=== PATIENT | female | born 1970 | race Caucasian/White ===

== ENCOUNTER → 2017-05-13 | Outpatient (CLI) | payer OTHER ==
[~2017-05-13] MED LIST: EPP3/2 IM; LISI10TA PO; MULT-513 PO
--- NOTE | 2017-05-13 16:06 | MAMMOGRAPHY REPORT ---
BILATERAL DIGITAL SCREENING MAMMOGRAM TOMOSYNTHESIS WITH CAD: 05/13/2017 CLINICAL HISTORY: Routine screening. Patient has no complaints. TECHNIQUE: Breast tomosynthesis in addition to standard 2D mammography was performed. Current study was also evaluated with a Computer Aided Detection (CAD) system. COMPARISON: Comparison is made to exams dated: 04/30/2016 mammogram, 04/11/2015 mammogram, 03/15/2014 m ammogram, 03/28/2014 mammogram, 03/28/2014 ultrasound, and 04/11/2014 stereotactic biopsy - [facility]. BREAST COMPOSITION: There are scattered areas of fibroglandular density in both breasts. FINDINGS: There are stable post biopsy changes in the lower inner quadrant of the right breast. A f ew scattered and grouped stable microcalcifications bilaterally. No new suspicious mass, architectur al distortion or cluster of microcalcifications is seen. IMPRESSION: ACR BI-RADS CATEGORY 1: NEGATIVE There is no mammographic evidence of malignancy. A 1 year screening mammogram is recommended. The pa tient will receive written notification of the results. Approximately 10% of breast cancers are not detected with mammography. A negative mammographic report should not delay biopsy if a clinically suggestive mass is present. Jessi Cross M.D. ay/:05/13/2017 15:39:51 Senior Safety Support Manager: Loly SALOMON)(M), [facility] letter sent: Normal 1/2 BI-RADS Code: ACR BI-RADS Category 1: Negative
== END | disposition home or self-care (01) ==
LOC: C.MAMM 11:13
PROVIDERS: ATTEND Obstetrics & Gynecology
DX: Z12.31 Encounter for screening mammogram for malignant neoplasm of breast (principal)

== ENCOUNTER → 2017-07-22 | Outpatient (CLI) | payer OTHER ==
[2017-07-22 17:24] LABS: HEMATOCRIT 40.9 % (37-47); MEAN CELL VOLUME 89.5 fL (80-100); MEAN CORPUSCULAR HEMOGLOBIN 29.8 pg (25-34); MEAN CORPUSCULAR HGB CONC 33.3 g/dl (32-36); MEAN PLATELET VOLUME 10.5 fL (7.4-10.4); PLATELET COUNT 313 K/uL (130-400); RED BLOOD COUNT 4.57 M/uL (4.2-5.4); WHITE BLOOD COUNT 5.02 K/uL (4.8-10.8)
[2017-07-22 17:43] LABS: ALT/SGPT 27 U/L (12-78); BLOOD UREA NITROGEN 15 mg/dl (7-18); BUN/CREATININE RATIO 14.7 (10-20); CALCIUM 8.9 mg/dl (8.5-10.1); CARBON DIOXIDE 28 mmol/L (21-32); CHLORIDE 109 mmol/L (98-107); CHOLESTEROL 221 mg/dl (0-200); GLUCOSE 115 mg/dl (70-99); SODIUM 142 mmol/L (136-145); TRIGLYCERIDES 276 mg/dl (0-150); VERY LOW DENSITY LIPOPROT CALC 55 mg/dl
[2017-07-22 17:46] LABS: ALB/GLOB RATIO 1.3 (0.9-2); ALKALINE PHOSPHATASE 50 U/L (45-117); AST/SGOT 23 U/L (15-37); CHOLESTEROL/HDL RATIO 4.6; HDL CHOLESTEROL 48 mg/dl; LDL CHOLESTEROL CALCULATED 118 mg/dl
== END | disposition home or self-care (01) ==
LOC: C.LABBFT 12:10
PROVIDERS: ATTEND Nurse Practitioner
DX: E78.00 Pure hypercholesterolemia, unspecified (principal); I10 Essential (primary) hypertension

== ENCOUNTER → 2017-11-25 | Outpatient (CLI) | payer OTHER | END | disposition home or self-care (01) | LOC: C.PAPS 07:46 | PROVIDERS: ATTEND Obstetrics & Gynecology | DX: Z01.419 Encounter for gynecological examination (general) (routine) without abnormal findings (principal) ==

== ENCOUNTER → 2018-07-24 | Outpatient (CLI) | payer OTHER ==
[2018-07-24 17:32] LABS: BASO % 0.6 %; BASO ABS # 0.03 K/uL (0-0.2); EOS % 3.1 %; EOS ABS # 0.15 K/uL (0-0.5); HEMATOCRIT 41.2 % (37-47); HEMOGLOBIN 13.8 g/dL (12.0-16.0); IG# 0.02 K/uL (0.00-0.02); LYMPH % 37.7 %; MEAN CELL VOLUME 88.4 fL (80-100); MEAN CORPUSCULAR HEMOGLOBIN 29.6 pg (25-34); MEAN CORPUSCULAR HGB CONC 33.5 g/dl (32-36); MEAN PLATELET VOLUME 10.5 fL (7.4-10.4); MONO % 7.5 %; MONO ABS # 0.36 K/uL (0.11-0.59); NEUT % 50.7 %; NEUT ABS # 2.41 K/uL (1.4-6.5); PLATELET COUNT 265 K/uL (130-400); RED CELL DISTRIBUTION WIDTH CV 12.7 % (11.5-14.5); RED CELL DISTRIBUTION WIDTH SD 40.8 fL (36.4-46.3); WHITE BLOOD COUNT 4.77 K/uL (4.8-10.8)
[2018-07-24 17:56] LABS: ALBUMIN 4.1 gm/dl (3.4-5.0); ALKALINE PHOSPHATASE 63 U/L (45-117); ALT/SGPT 60 U/L (12-78); AST/SGOT 32 U/L (15-37); BLOOD UREA NITROGEN 13 mg/dl (7-18); CALCIUM 9.1 mg/dl (8.5-10.1); CARBON DIOXIDE 24 mmol/L (21-32); CHOLESTEROL 215 mg/dl (0-200); CREATININE 0.88 mg/dl (0.60-1.20); GLUCOSE 105 mg/dl (70-99); LDL CHOLESTEROL CALCULATED 131 mg/dl; POTASSIUM 4.1 mmol/L (3.5-5.1); SODIUM 139 mmol/L (136-145); TOTAL PROTEIN 7.9 gm/dl (6.4-8.2)
== END | disposition home or self-care (01) ==
LOC: C.LABBFT 11:40
PROVIDERS: ATTEND Internal Medicine
DX: E78.00 Pure hypercholesterolemia, unspecified (principal); I10 Essential (primary) hypertension